=== PATIENT | male | born 2005 | race Caucasian/White ===

== ENCOUNTER 2023-02-06 16:45 | Outpatient (RCR) | payer SELFPAY | END 2023-04-17 09:20 | disposition home or self-care (01) | PROVIDERS: Visit Provider Family Medicine | DX: M54.2 Cervicalgia (principal); G89.29 Other chronic pain; Z74.09 Other reduced mobility; R53.1 Weakness; Z51.89 Encounter for other specified aftercare | CPT/HCPCS: 97110; 97140; 97161 ==